=== PATIENT | male | born 1935 | race Caucasian/White ===

== ENCOUNTER 2017-10-20 06:28 | Day surgery (SDC) | payer MEDICARE ==
[~2017-10-20 06:28] MED LIST: WARF10TA21 PO; WARF5TAB76 PO
[2017-10-20] MEDS ORDERED: LIDOCAINE HCL 2% JELLY 5ML ONE (07:39)
[2017-10-20] MEDS ORDERED: TETRACAINE/BENZOCAINE/BUTAMBEN 20 GM SPRAY MM ONE (07:40)
[2017-10-20] MEDS ORDERED: GABA-531 PO (07:54)
[2017-10-20] MEDS ORDERED: ROSU10TA PO (07:54)
[2017-10-20] MEDS ORDERED: ASPI-1159 PO (07:54)
[2017-10-20] MEDS ORDERED: SOTA80TA PO (07:54)
[2017-10-20] MEDS ORDERED: ROSU20TA PO (07:54)
[2017-10-20] MEDS ORDERED: MIDAZOLAM HCL 2 MG/2 ML VIAL ONE ×2 (08:25→08:52)
[2017-10-20] MEDS ORDERED: FENTANYL CITRATE/PF 50MCG/ML 2ML VIAL ONE (08:26)
== END 2017-10-20 12:00 | disposition home or self-care (01) ==
LOC: CARD 06:28
PROVIDERS: ATTEND Specialist
DX: I48.91 Unspecified atrial fibrillation (principal); I35.1 Nonrheumatic aortic (valve) insufficiency; I34.0 Nonrheumatic mitral (valve) insufficiency; I11.9 Hypertensive heart disease without heart failure; E78.5 Hyperlipidemia, unspecified; Z79.01 Long term (current) use of anticoagulants; Z95.2 Presence of prosthetic heart valve
CPT/HCPCS: 92960; 93005; 93312; J2250; J3010